=== PATIENT | female | born 1975 | race Caucasian/White ===

== ENCOUNTER → 2023-12-31 10:44 | Outpatient (REF) | payer OTHER, SELFPAY ==
[2023-12-31 20:49] LABS: Hepatitis B Surface Antibody Positive
[2024-01-01 12:49] LABS: Rubella Positive
[2024-01-02 14:41] LABS: Quantiferon Mitogen minus NIL 9.96 IU/mL; Quantiferon NIL 0.04 IU/mL; Quantiferon TB Gold Plus Negative (Negative)
== END ==
LOC: OHS 10:44
PROVIDERS: ATTENDING PHYSICIAN Nurse Practitioner Family
DX: Z23 Encounter for immunization (principal)
CPT/HCPCS: 36415; 86480; 86706; 86735; 86762; 86765; 86787